=== PATIENT | female | born 1975 | race American Indian/Alaskan Native ===

== ENCOUNTER 2016-08-10 05:54 | Day surgery (SDC) | payer OTHER ==
[2016-08-10] MEDS ORDERED: TYLENOL PO ONE (06:14)
[2016-08-10] MEDS ORDERED: BENADRYL PO ONE (06:15)
[2016-08-10] MEDS ORDERED: NACL 0.9% 250ML 250 ML IV ONE (06:53)
[2016-08-10 11:17] VITALS: BP 124/74
== END 2016-08-10 11:25 | disposition home or self-care (01) ==
LOC: OPU 05:54 → EDSTATUS 06:00 → OPU 11:25
PROVIDERS: ATTEND Family Medicine
DX: D64.9 Anemia, unspecified (principal); Z72.89 Other problems related to lifestyle
CPT/HCPCS: 36415; 36430; 85014; 85018; 86850; 86900; 86901; 86920; J7050; P9016

== ENCOUNTER 2016-10-19 10:12 | Observation (INO) | payer OTHER ==
[2016-10-14 11:34] LABS: Hematocrit 29.9 % (30.3-42.9); Mean Corpuscular HGB Conc 30 % (30-34); Mean Corpuscular Volume 74 fl (79-97); Platelet Count 247 K/mm3 (140-440); Red Blood Count 4.05 M/mm3 (3.65-5.03); White Blood Count 4.1 K/mm3 (4.5-11.0)
[2016-10-14 11:37] LABS: Mean Corpuscular Hemoglobin 22 pg (28-32); Red Cell Distribution Width 20.5 % (13.2-15.2)
--- NOTE | 2016-10-14 11:56 | Anesthesia Consultation ---
Anesthesia Consult and Med Hx Date of service: 10/14/16 - Airway Anesthetic Teeth Evaluation: Caps ROM Head & Neck: Adequate Mental/Hyoid Distance: Adequate Mallampati Class: Class I Intubation Access Assessment: Good - Pulmonary Exam CTA: Yes - Cardiac Exam Cardiac Exam: RRR - Pre-Operative Health Status ASA Pre-Surgery Classification: ASA2 Proposed Anesthetic Plan: General - Pre-Anesthesia Comment Pre-Anesthesia Comments: GASTRIC BYPASS - Hematic Hx Anemia: Yes (BLOOD TRANSFUSION 2016) - Other Systems Hx Alcohol Use: Yes (occas)
[2016-10-14 12:24] LABS: Blastocytes % (Manual) 0 %
[2016-10-14 12:25] LABS: Basophils % (Manual) 0 % (0.0-1.8); Eosinophils % (Manual) 0 % (0.0-4.3)
[2016-10-14 12:26] LABS: Anisocytosis 1+; Diff Status Complete; Hypochromasia 1+; Microcytosis 1+
--- NOTE | 2016-10-18 17:05 | History and Physical Report ---
History of Present Illness Date of examination: 10/18/16 Date of admission: 10/19/2016 Chief complaint: uterine fibroids History of present illness: 41y/o with symptomatic uterine fibroids. The patient reports heavy painful menses. She had an ultrasound demonstrating a 5.3cm myoma. The patient elects to undergo definitive surgical management. Past History Past Medical History: other (uterine fibroid) Past Surgical History: gastric bypass Social history: single - Obstetrical History : 3 Para: 3 Hx # Term Pregnancies: 3 Number of Pregnancies: 0 Spontaneous Abortions: 0 Induced : 0 Number of Living Children: 3 Medications and Allergies Allergies Allergy/AdvReac Type Severity Reaction Status Date / Time No Known Allergies Allergy Verified 10/12/16 15:43 Home Medications Medication Instructions Recorded Confirmed Last Taken Type Phentermine HCl 30 mg PO QAM 10/12/16 10/12/16 09/20/16 History Active Meds: Active Medications Famotidine (Pepcid) 20 mg PO PREOP NR Stop: 10/19/16 19:00 Lactated Ringer's (Lactated Ringers) 1,000 mls @ 42 mls/hr IV DIRECT WILLIE Midazolam HCl (Versed) 2 mg IV PREOP NR Stop: 10/19/16 23:59 Review of Systems All systems: negative Genitourinary: vaginal bleeding, pelvic pain - Vital Signs Vital signs: Vital Signs Temp Pulse Resp BP 97.5 F L 74 16 112/74 10/14/16 11:05 10/14/16 11:05 10/14/16 11:05 10/14/16 11:05 Temp Pulse Resp BP Pulse Ox 97.5 F L 74 16 112/74 10/14/16 11:05 10/14/16 11:05 10/14/16 11:05 10/14/16 11:05 - Physical Exam Breasts: Positive: deferred Cardiovascular: Regular rate Lungs: Positive: Clear to auscultation Abdomen: Positive: normal appearance, soft Results Result Diagrams: 10/14/16 11:15 All other labs normal. Assessment and Plan - Patient Problems (1) Uterine fibroid Current Visit: Yes Status: Acute Qualifiers: Uterine leiomyoma location: U Plan to address problem: scheduled for a robotic hysterectomy/BSO (2) Dysfunctional uterine bleeding Current Visit: Yes Status: Acute (3) Anemia Current Visit: Yes Status: Acute Qualifiers: Anemia type: A Iron deficiency anemia type: I Vitamin B12 deficiency anemia type: V Folate deficiency anemia type: F Bone marrow failure anemia type: B Hemolytic anemia type: H Other causes of anemia: O
[~2016-10-19 10:12] MED LIST: ANCEF/STERILE WATER 2 GM/20 ML 2 GM/20 ML SYRINGE IV SCH; LACTATED RINGERS 1,000 ML IV SCH; NACL 0.9% 500 ML 500 ML IV ONE; NEURONTIN PO NR; PEPCID PO NR; SUBLIMAZE IV ONE; VERSED IV NR
--- NOTE | 2016-10-19 12:00 | Anesthesia Day of Surgery ---
Anesthesia Day of Surgery - Day of Surgery Patient Examined: Yes Patient H&P Reviewed: Yes Patient is NPO: Yes
[2016-10-19] MEDS ORDERED: MARCAINE-EPI/PF 0.5%-1:200,000 INFILTRATI ONE (12:25)
[2016-10-19] MEDS ORDERED: MARCAINE-EPI 0.5%-1:200,000 INFILTRATI ONE (12:25)
[2016-10-19] MEDS ORDERED: DECADRON ONE (12:26)
[2016-10-19] MEDS ORDERED: SUBLIMAZE ONE (12:40)
[2016-10-19] MEDS ORDERED: ZOFRAN ONE (13:30)
[2016-10-19] MEDS ORDERED: NEOSPORIN GU IR ONE ×2 (13:47→14:33)
[2016-10-19] MEDS ORDERED: ZEMURON IV ONE (13:49)
[2016-10-19] MEDS ORDERED: DIPRIVAN 10 MG/ML IV ONE (13:49)
[2016-10-19] MEDS ORDERED: XYLOCAINE MPF 2% ONE (13:49)
[2016-10-19] MEDS ORDERED: DILAUDID ONE ×2 (13:50→15:45)
[2016-10-19] MEDS ORDERED: NACL 0.9% IR ONE ×2 (14:32)
[2016-10-19] MEDS ORDERED: ROBINUL ONE ×2 (15:07)
[2016-10-19] MEDS ORDERED: NEOSTIGMINE ONE (15:07)
[2016-10-19] MEDS ORDERED: PERCOCET 5/325 PO PRN (15:09)
[2016-10-19] MEDS ORDERED: MOTRIN PO PRN (15:09)
[2016-10-19] MEDS ORDERED: ZOFRAN IV PRN (15:09)
[2016-10-19] MEDS ORDERED: NARCAN 0.4 MG/1 ML IV PRN (15:09)
[2016-10-19] MEDS ORDERED: MILK OF MAGNESIA PO PRN (15:09)
--- NOTE | 2016-10-19 15:09 | Operative Report ---
Operative Report Operative Report: Date of surgery: 10/19/2016 Preoperative diagnoses: Dysfunctional uterine bleeding; symptomatic uterine fibroids; iron deficiency anemia Postoperative diagnoses: Same as above Procedure: Robotic hysterectomy; bilateral salpingo-oophorectomy Surgeon: Trang Krishna M.D. Smash Piecer: Isamar Amaya Anesthesia: Gen. endotracheal anesthesia Estimated blood loss: 50 mL Pathology: Uterus, cervix, tubes and ovaries Indication: 41-year-old 003 with a history of symptomatic uterine fibroids. The patient had significant vaginal bleeding causing iron deficiency anemia. The patient was transfused 1 unit of packed red blood cells prior to surgery. Procedure: The patient was taken to the operating room and given general endotracheal anesthesia without complication. She is prepped and draped in a normal sterile fashion. A bivalve speculum was placed in the patient's vagina and a single- tooth tenaculum placed on the anterior lip of the cervix. The uterus was sounded with the uterine sound. A Mpayy uterine manipulator was placed in the bivalve speculum was then removed. Attention was then turned to the patient's abdomen where a millimeter supra umbilical skin incision was then made. A Veress needle was placed and peritoneal entry was verified water-filled syringe. Insufflation of the peritoneal cavity was performed with CO2 gas. The 12 mm trocar was then placed under direct visualization. An additional 8 mm trocar was placed on the patient's left and right lateral side just opposite of the supraumbilical trocar. An additional 5 mm right lateral trocar was then placed as the accessory port. The patient was then placed in steep Trendelenburg. The da Duran robot was then engaged. A fenestrated forcep was placed in arm 2 and a vessel sealer was placed in arm 1. The surgeon then transferred to the surgical console. The mesosalpinx was then isolated on the right. The vessel sealer was used to coagulate the infundibulopelvic ligament which was then transected. The round ligament was then coagulated and transected also. The vesicouterine peritoneum was then entered from the patient 's right side. The uterine vessels were then coagulated with the vessel sealer. The vessels were then transected . Attention was then turned to the patient's left side where the infundibulopelvic ligament and mesosalpinx were again isolated coagulated and transected. The vesical peritoneum was then entered from the left and joined in the midline. Peritoneum was reflected off of the lower uterine segment. Uterine vessels were then coagulated and then transected. The blood supply to the uterus was adequately contained, a posterior colpotomy was made. The V care ring was visualized. Posterior colpotomy was created with the monopolar scissors. The incision was continued circumferentially until anterior colpotomy was made. The cervix and uterus were amputated from the vaginal cuff. The uterus was then removed along with the tubes and ovaries bilaterally through the vagina and a warm laparotomy sponge was placed and maintain the pneumoperitoneum. The vaginal cuff was then closed in a running fashion with V lock suture. Irrigation of the pelvis was performed. Tisseel was applied to the incision. The supraumbilical 12 mm trocar site was closed with the Landry Diaz device. The skin was then reapproximated with 4-0 Monocryl. The tissue was sent to pathology which included the cervix and uterus. The patient was then successfully extubated. She was then taken to the recovery room in stable condition. All sponge laps and needle counts were correct x2.
[2016-10-19] MEDS: DILAUDID IV PRN ×2 (15:45→15:55)
[2016-10-19] MEDS: TORADOL IV SCH ×2 (16:00→22:59)
[2016-10-19] MEDS ORDERED: MORPHINE PCA 30MG/30ML IV SCH (16:00)
[2016-10-19] MEDS: D5LR 1,000 ML IV SCH (18:11)
[2016-10-20] MEDS: D5LR 1,000 ML IV SCH (00:44)
[2016-10-20 05:00] LABS: Hematocrit 27.4 % (30.3-42.9); Hemoglobin 8.3 gm/dl (10.1-14.3)
[2016-10-20] MEDS: TORADOL IV SCH (05:56)
--- NOTE | 2016-10-20 07:44 | Admit Criteria Form ---
Admission Criteria Documentation: AMBULATORY SURGERY EXCEPTION CRITERIA Ambulatory Surgery Exception Criteria ( Place 'X' for any and all applicable criteria): Surgery or procedure performed on ambulatory basis may require inpatient stay for[A] ANY ONE of the following(1)(2)(3)(4)(5)(6)(7)(8)(9): [X] I. A preoperative situation, condition, or finding that warrants inpatient stay as indicated by ANY ONE of the following: [X] a) Inpatient care needed because of severity of a disease or condition rather than the surgery (eg, severe cardiac or respiratory disease, severe infection) (15) (16 ) (17) (18) [] b) Emergent procedure (eg, angioplasty for acute ischemia)(19) [] c) Complex surgical approach or situation as indicated by ANY ONE of the following(3): [] i) Open approach needed instead of usual endoscopic, transcatheter, or other less invasive procedure [] ii) Difficult approach because of previous operation [] iii) Airway monitoring required after open neck procedures(20)(21) [] iv) Large mass requiring unusually extensive dissection [] v) Additional complicating feature requiring inpatient care (eg, drain management)(22(23): [] d) Major surgery in a pt with high anesthetic risk as indicated by ANY ONE of the following (2)(3)(5)(7)(8): [] i) ASA risk class III or higher (severe systemic disease impairing function) [D] [] ii) Advanced age (eg, older than 85 years)(14)(24) [] iii) Symptomatic heart failure(25) [] iv) Symptomatic asthma or COPD(8)(21) [] v) Morbid obesity with hemodynamic or respiratory problems(20)( 21)(26)(27) [] vi) Obstructive sleep apnea(20)(21) [] vii) Former premature infants who are younger than 60 weeks [] viii) High risk for severe postoperative abnormalities (eg, severe postoperative hypocalcemia after parathyroidectomy for severe hyperparathyroidism)(27)( 28) [] ix) Unstable angina(25) [] e) Drug-related risk requiring inpatient stay as indicated by ANY ONE of the following(5)(10)(14)(32)(33) [] i) Procedure requires discontinuing drugs or other therapy (eg , antiarrhythmic medication, antiseizure medication), which necessitates inpatient observation or treatment.(18)(31) [] ii) Major surgery and high risk drug use as indicated by ANY ONE of the following: [] 1) Active abuse of cocaine or similar drug [] 2) Monoamine oxidase inhibitor use [] 3) Other drug identified as posing risk [] f) Inadequate outpatient care situation as indicated by ANY ONE of the following(5)(10)(14)(32)(33) [] i) Patient lives remote from medical facility and procedure has urgent complication potential, and temporary nearby residence cannot be arranged [] ii) Patient will have postprocedure incapacitation and inadequate assistance at home, or alternative level of care cannot be arranged. [] iii) Patient will have long general anesthesia or procedure side effect resolution time, and competent person to stay with patient on first postoperative night at home or alternative level of care cannot be arranged. []iv) Other inadequate outpatient situation that cannot be handled by other means [] II. A perioperative event, condition, or finding that warrants inpatient stay as indicated by ANY ONE of the following (1)(2)(3): [] a) Inadequate physiologic recovery: cardiovascular, respiratory, or hemodynamic status not normal or near preoperative baseline(18) [] b) Hemodynamic instability [] c) Patient not alert with near normal or baseline mental status [] d) Temperature not normal or as expected and not appropriate for outpatient treatment of condition [] e) Ambulatory or appropriate activity level status not yet achieved post procedure [E](34)(35)(36) [] f) Operative site not appropriate (eg, unexpected or excessive drainage or bleeding) [] g) Postoperative effects not resolved or adequately managed (eg, significant pain or vomiting not appropriate for outpatient or next level of care)(10)(12) [] h) Complicating features requiring inpatient care as indicated by ANY ONE of the following(37): [] i) Severe complications of procedure (eg, bowel injury, airway compromise, vascular injury,severe hemorrhage) [] ii) Extensive (eg, dissection far beyond usual scope of procedure ) or prolonged (eg, 120 minutes beyond usual) surgery needed requiring inpatient postoperative care [] iii) Conversion to an open or complex procedure that requires inpatient care (eg, open vs laparoscopic cholecystectomy, abdominal vs vaginal hysterectomy)(38) [] iv) Comorbid condition or test result identified during or post procedure that requires inpatient care (7) [] v) Malignant hyperthermia(30) [] vi) Other complicating feature requiring inpatient care(22)(23) Inpatient stay may be needed until ALL of the following are present (1)(2)(3)(4) (5)(6)(10)(14)(33)(40): []a) Physiologic recovery: cardiovascular, respiratory, and hemodynamic status normal or near preoperative baseline []b) Hemodynamic stability []c) Patient alert, with near normal or baseline mental status []d) Temperature appropriate: patient afebrile or temperature appropriate for outpt treatment of condition []e) Activity level appropriate: ambulatory or appropriate activity level post procedure []f) Operative site appropriate as indicated by ALL of the following: []i) Site dry or with expected drainage []ii) Any blood noted is as expected for procedure. []g) Postoperative effects resolved or managed as indicated by ALL of the following: []i) Pain management appropriate for outpatient (or next level of) care(10) []ii) Minimal nausea and vomiting: if present, successfully treated with oral medication(12) []iii) Headache, dizziness, or drowsiness (if present) are mild. []h) Voiding status acceptable as indicated by ANY ONE of the following: []i) Voiding spontaneously []ii) No voiding but instructions given for follow-up in 6 to 8 hours []iii) Urinary catheter in place, and instructions given for follow-up []i) Complicating features requiring inpatient care manageable at a lower level of care(37) []j) Comorbid conditions manageable at a lower level of care(37) The original [employer] content created by [employer] has been revised. The portions of the content which have been revised are identified through the use of italic text or in bold, and [employer] has neither reviewed nor approved the modified material. All other unmodified content is copyright [employer]. Please see references footnoted in the original [employer] edition 2016 Admission Criteria Met: Yes
--- NOTE | 2016-10-20 11:19 | Progress Note ---
Assessment and Plan - Patient Problems (1) Uterine fibroid Current Visit: Yes Status: Acute Qualifiers: Uterine leiomyoma location: U Plan to address problem: patient doing well discharge home (2) Dysfunctional uterine bleeding Current Visit: Yes Status: Acute (3) Anemia Current Visit: Yes Status: Acute Qualifiers: Anemia type: A Iron deficiency anemia type: I Vitamin B12 deficiency anemia type: V Folate deficiency anemia type: F Bone marrow failure anemia type: B Hemolytic anemia type: H Other causes of anemia: O Subjective - Subjective Date of service: 10/20/16 Interval history: Patient without complaints. Tolerating regular diet. Pain well controlled Patient reports: appetite normal, voiding normally, pain well controlled Objective - Vital Signs Latest vital signs: Vital Signs Temp Pulse Pulse Resp BP BP Pulse Ox 10/20/16 09:46 98 F 93 H 18 94/56 10/20/16 08:00 18 10/20/16 04:30 98.6 F 64 16 97/48 10/20/16 00:00 98.6 F 69 16 139/76 10/19/16 19:30 98.6 F 67 16 131/69 10/19/16 18:09 18 10/19/16 17:15 98.5 F 59 L 16 133/72 10/19/16 16:50 98.7 F 57 L 16 133/72 10/19/16 16:20 59 L 16 134/85 96 10/19/16 16:05 63 12 142/88 97 10/19/16 16:00 20 10/19/16 15:55 15 10/19/16 15:50 56 L 15 143/91 100 10/19/16 15:45 65 12 141/91 100 10/19/16 15:40 69 15 142/84 100 10/19/16 15:36 77 16 146/87 100 10/19/16 15:28 97.5 F L 75 15 137/86 99 10/19/16 12:59 93 H 12 137/67 100 10/19/16 12:54 77 16 119/73 100 10/19/16 12:49 70 14 119/73 100 10/19/16 12:44 68 12 127/76 100 10/19/16 12:39 73 13 130/77 100 10/19/16 12:34 72 14 132/70 100 10/19/16 11:46 98.5 F 67 12 135/71 98 Intake and Output 10/19/16 10/20/16 10/20/16 22:59 06:59 14:59 Intake Total 1215 1400 240 Output Total 290 1600 Balance 925 -200 240 Intake: IV 975 1000 D5lr 1,000 ml @ 125 mls/ 125 1000 hr IV DIRECT WILLIE Rx#: [id number] Oral 240 240 Intake, Free Water 400 Output: Urine 290 1600 Indwelling Catheter 1600 Uretheral ([place]) 100 Other: Total, Intake Amount 240 240 Total, Output Amount 800 Voiding Method Indwelling Catheter Toilet # Voids 0 Void 0 - Exam Abdomen: Present: normal appearance, soft Incision: Present: normal - Labs Labs: Abnormal lab results 10/19/16 10/20/16 Range/Units 11:20 04:16 Hgb 8.3 L (10.1-14.3) gm/dl Hct 27.4 L (30.3-42.9) % Crossmatch See Detail
--- NOTE | 2016-10-20 11:21 | Discharge Summary ---
Providers - Providers Date of Admission: 10/19/16 15:09 Date of discharge: 10/20/16 Attending physician: JEN LWO Primary care physician: SHMUEL BOURNE Hospitalization Reason for admission: other (symptomatic uterine fibroids) Procedure: other (robotic hysterectomy and bilateral salpingo-oophorectomy) Incision: normal, dry Hospital course: Patient was admitted via surgery underwent a robotic hysterectomy bilateral salpingo-oophorectomy for symptomatic fibroids. The patient had significant anemia prior to surgery and had to be transfused 1 unit of packed red blood cells. Her postoperative course was uneventful. Please see operative note for details of her surgery. The patient was discharged home when she met discharge criteria. Condition at discharge: Good Disposition: DISCHARGED TO HOME OR SELFCARE - Discharge Diagnoses (1) Uterine fibroid Status: Acute Qualifiers: Uterine leiomyoma location: U (2) Dysfunctional uterine bleeding Status: Acute (3) Anemia Status: Acute Qualifiers: Anemia type: A Iron deficiency anemia type: I Vitamin B12 deficiency anemia type: V Folate deficiency anemia type: F Bone marrow failure anemia type: B Hemolytic anemia type: H Other causes of anemia: O Plan - Discharge Medications Prescriptions: Docusate Sodium [Colace] 100 mg PO BID PRN #60 capsule PRN Reason: Constipation Ibuprofen [Motrin] 800 mg PO Q8HR PRN #60 tablet PRN Reason: Pain Oxycodone HCl/Acetaminophen [Percocet 7.5/325 mg] 1 each PO Q6HR PRN #45 tablet PRN Reason: Pain - Provider Discharge Summary Activity: no sex for 6 weeks, no heavy lifting 4 weeks, no strenuous exercise Diet: routine Instructions: routine Additional instructions: [] Smoking cessation referral if applicable(refer to patient education folder for contact #) [] Refer to [facility] Booklet Call your doctor immediately for: * Fever > 100.5 * Heavy vaginal bleeding ( >1 pad per hour) * Severe persistent headache * Shortness of breath * Reddened, hot, painful area to leg or breast * Drainage or odor from incision. * Keep incision clean and dry at all times and follow doctor's instructions regarding bathing/showering Follow-up in 3-[address] Low - Follow up plan
[2016-10-20 11:34] VITALS: BP 124/66
== END 2016-10-20 13:00 | disposition home or self-care (01) ==
LOC: OR 10:12 → OB 15:09
PROVIDERS: ADMIT Obstetrics & Gynecology; ATTEND Obstetrics & Gynecology
DX: N93.8 Other specified abnormal uterine and vaginal bleeding (principal); D25.9 Leiomyoma of uterus, unspecified; D50.9 Iron deficiency anemia, unspecified; Z98.84 Bariatric surgery status
CPT/HCPCS: 36415; 36430; 58571; 64450; 84703; 85007; 85014; 85018; 85025; 86850; 86900; 86901; 86920; 88307; 96374; 96375; 96376; A4217; C9250; G0378; J0690; J1100; J1170; J1885; J2250; J2270; J2405; J2704; J2710; J3010; J7120; J7121; P9016; S2900